=== PATIENT | male | born 1975 | race Caucasian/White ===

== ENCOUNTER 2021-05-05 12:43 | Emergency (ER) | payer BC, SELFPAY ==
[2021-05-05 14:19] VITALS: BP 147/105; PULSE 71; RESP 18; TEMP 36.8; O2SAT 98; BMI 28.1
--- NOTE | 2021-05-05 16:11 | XRR_ITS ---
PROCEDURE INFORMATION: Exam: XR Chest Exam date and time: 05/05/2021 4:11 PM Age: 45 years old Clinical indication: Cough and dyspnea; Additional info: Dyspnea/cough TECHNIQUE: Imaging protocol: XR of the chest. Views: 1 view. COMPARISON: No relevant prior studies available. FINDINGS: Lungs: Unremarkable. No consolidation. Pleural spaces: Unremarkable. No pleural effusion. No pneumothorax. Heart/Mediastinum: Unremarkable. No cardiomegaly. Bones/joints: Unremarkable. XR/XR chest 1V portable [id number] IMPRESSION: No acute findings.
--- NOTE | 2021-05-05 16:12 | ECG_ITS ---
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 Measurements Intervals [place] Rate: 61 P: 67 TN: 151 QRS: -6 QRSD: 88 T: 31 QT: 375 QTc: 379 Interpretive Statements SINUS RHYTHM No previous ECG available for comparison Electronically Signed On 05-05-2021 22:10:03 CDT by Yonas Marcus M.D. [id number]
--- NOTE | 2021-05-05 16:14 | ED_ITS ---
HPI - General Adult General: Chief complaint: General Medical Stated complaint: Nausea, vomiting, passing out Time Seen by Provider: 05/05/21 15:28 History of Present Illness: HPI narrative: 45-year-old male presents emergency room complaining of a syncopal episode yesterday while at [employer]. He had been standing up and sitting down several times got lightheaded and dizzy after he had sat down and nearly passed out. He was assisted by others nearby states he never fully lost consciousness. Is not had any problems since and spent over 24 hours since that episode he just generally feels draggy and feels unwell has not had any fever sweats chills did not have any vomiting or diarrhea but is happened it was very nauseous. Onset (ago): day(s) Severity: mild Relieving factors: none Exacerbating factors: none Associated symptoms: Reports diaphoresis, malaise and nausea; Deny chest pain, confusion, cough, decreased appetite, dyspnea, fevers/chills, headache(s), rash, palpitations, seizures, short of breath, syncope, vomiting or weakness Treatments prior to arrival: none Review of Systems Const: Reports: malaise and diaphoresis ENMT: Denies: throat pain, ear or mastoid pain, nasal discharge or nasal congestion Card: Denies: chest pain, palpitations or syncope Resp: Denies: dyspnea GI: Reports: nausea; Denies: vomiting : Denies: flank pain, dysuria, urinary frequency or urinary urgency Skin/Breast: Denies: rash Neuro: Denies: headache(s) or confusion Physical Exam Const: COMMON NORMALS: no acute distress GENERAL APPEARANCE: cooperative and comfortable ORIENTATION/CONSCIOUSNESS: Yes awake, Yes oriented to person, Yes oriented to place and Yes oriented to time HENMT: COMMON NORMALS: normocephalic, atraumatic and hearing grossly normal bilaterally HEAD & SCALP: normocephalic and atraumatic Neck/C-Spine: COMMON NORMALS: no JVD Resp: COMMON NORMALS: normal respiratory effort, No retractions, No use of accessory muscles and clear to auscultation bilaterally AUSCULTATION: clear to auscultation bilaterally Cardio: COMMON NORMALS: no JVD, regular rate, regular rhythm and No murmurs present (Cardio) RATE: regular rate RHYTHM: regular rhythm GI: COMMON NORMALS: Soft to palpation and No hepatosplenomegaly present AUSCULTATION: Yes normoactive bowel sounds PALPATION: Yes Soft to palpation, No Tenderness to palpation present (GI), No Guarding due to palpation present (GI) and Yes No hepatosplenomegaly present Extremity: COMMON NORMALS: normal to inspection, capillary refill normal, no clubbing, cyanosis or edema, no calf tenderness and no pedal edema Neuro: SENSORIUM/ORIENTATION: Yes oriented to person, Yes oriented to place and Yes oriented to time Skin: COMMON NORMALS: no rashes or lesions noted GENERAL SKIN EXAM: no rashes or lesions noted Course Vital Signs: Vital signs: Vital Signs Temperature 98.3 F 05/05/21 14:19 Pulse Rate 78 05/05/21 18:25 Respiratory Rate 24 H 05/05/21 18:25 Blood Pressure 134/89 05/05/21 18:25 Pulse Oximetry 98 05/05/21 18:25 MDM - General Adult MDM Narrative: Medical decision making narrative: Labs EKG and imaging reviewed as on the chart. Nothing acute on EKGs patient is feeling fine at this time. Discussed abnormal I would probably get him set up for an outpatient stress test. He is visiting relatives in town and lives quite some distance away instead he plans to be going home with the next day or 2 encouraged him to follow-up with his primary care doctor to discuss whether or not he should have cardiac evaluation done I would recommend at very least that he pursue getting a graded exercise test if he has any recurrent recurrence or worsening of symptoms he is return to the nearest emergency room. Lab Data: Labs: Lab Results 05/05/21 05/05/21 05/05/21 16:15 16:15 16:15 WBC 8.7 10^3/uL 10^3/ uL (4.0-10.0) RBC 5.19 10^6/uL 10^6 /uL (4.1-5.3) Hgb 15.7 g/dL g/dL (11.7-16.6) Hct 46.9 % % (42.0-52.0) MCV 90.4 fl fl (80-94) MCH 30.3 pg pg (28.0-34.0) MCHC 33.5 g/dL g/dL (30.0-36.0) RDW 12.0 % L % (12.1-15.1) Plt Count 251 10^3/cmm 10^3 /cmm (130-400) MPV 9.5 fL fL (7.4-10.4) Neut % (Auto) 64.2 % % Lymph % (Auto) 25.0 % % [place] % (Auto) 8.7 % % Eos % (Auto) 1.0 % % Baso % (Auto) 0.8 % % Neut # (Auto) 5.58 10^3/uL 10^3 /uL (1.8-7.7) Lymph # (Auto) 2.2 10^3/uL 10^3/ uL (0.8-4.8) [place] # (Auto) 0.8 10^3/uL 10^3/ uL (0.2-0.9) Eos # (Auto) 0.1 10^3/uL 10^3/ uL (0.0-0.8) Baso # (Auto) 0.1 10^3/uL 10^3/ uL (0.0-0.1) Nucleated RBC % (a uto) 0 % % Nucleated RBCs # 0.0 /100WBC /100W BC Sodium 136 mmol/L mmol/L (136-145) Potassium 4.0 mmol/L mmol/L (3.5-5.1) Chloride 98 mmol/L mmol/L (98-107) Carbon Dioxide 29 mmol/L mmol/L (22-29) Anion Gap 13.0 (5-19) BUN 8 mg/dL mg/dL (6-20) Creatinine 0.7 mg/dL mg/dL (0.7-1.2) GFR Calculation 122.5 mL/min mL/m in (90-130) Glucose 88 mg/dL mg/dL (65-115) Calculated Osmolal ity 280 mOsm/kg L mOs m/kg (285-295) Calcium 9.0 mg/dL mg/dL (8.5-10.5) Total Bilirubin 0.7 mg/dL mg/dL (0.15-1.2) AST 18 U/L U/L (0-40) ALT 24 U/L U/L (0-41) Alkaline Phosphata se 73 IU/L IU/L (40-130) Troponin T Baselin e 6 ng/L ng/L (0-15) Total Protein 7.8 g/dL g/dL (6.6-8.7) Albumin 4.0 g/dL g/dL (3.5-5.2) Globulin 3.8 g/dL g/dL (1.3-4.6) Lipase 21 U/L U/L (13-60) Urine Color Urine Appearance Urine pH Ur Specific Gravit y Urine Protein Urine Glucose (UA) Urine Ketones Urine Blood Urine Nitrate Urine Bilirubin Urine Urobilinogen Ur Leukocyte Shima ase 05/05/21 16:40 WBC RBC Hgb Hct MCV MCH MCHC RDW Plt Count MPV Neut % (Auto) Lymph % (Auto) [place] % (Auto) Eos % (Auto) Baso % (Auto) Neut # (Auto) Lymph # (Auto) [place] # (Auto) Eos # (Auto) Baso # (Auto) Nucleated RBC % (a uto) Nucleated RBCs # Sodium Potassium Chloride Carbon Dioxide Anion Gap BUN Creatinine GFR Calculation Glucose Calculated Osmolal ity Calcium Total Bilirubin AST ALT Alkaline Phosphata se Troponin T Baselin e Total Protein Albumin Globulin Lipase Urine Color Yellow (Yellow) Urine Appearance Clear (CLEAR) Urine pH 5 (5-7) Ur Specific Gravit y 1.005 (1.005-1.030) Urine Protein Neg (Negative) Urine Glucose (UA) Norm (Normal) Urine Ketones Negative (Negative) Urine Blood Neg (Negative) Urine Nitrate Negative (Negative) Urine Bilirubin Neg (Negative) Urine Urobilinogen Norm mg/dL mg/dL (Negative) Ur Leukocyte Shima ase Negative (Negative) Discharge Plan Discharge Patient Disposition: Home Clinical Impression: Syncope Condition: Stable Discharge Orders: Discharge ED (Routine); Ordered 05/05/21 Ordered By: Donaldo Carlisle Patient Instructions: Opioid Safety Coding Level of Care Code 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
[2021-05-05 16:24] LABS: Basophils # 0.1 10^3/uL (0.0-0.1); Basophils % 0.8 %; Eosinophils # 0.1 10^3/uL (0.0-0.8); Hematocrit 46.9 % (42.0-52.0); Hemoglobin 15.7 g/dL (11.7-16.6); Lymphocytes # 2.2 10^3/uL (0.8-4.8); Mean Corpuscular HGB Conc 33.5 g/dL (30.0-36.0); Mean Corpuscular Hemoglobin 30.3 pg (28.0-34.0); Mean Corpuscular Volume 90.4 fl (80-94); Mean Platelet Volume 9.5 fL (7.4-10.4); Monocytes # 0.8 10^3/uL (0.2-0.9); Monocytes % 8.7 %; Neutrophils # 5.58 10^3/uL (1.8-7.7); Neutrophils % 64.2 %; Nucleated Red Blood Cells % 0 %; Platelet Count 251 10^3/cmm (130-400); Red Blood Count 5.19 10^6/uL (4.1-5.3); White Blood Count 8.7 10^3/uL (4.0-10.0)
[2021-05-05] MEDS: ondansetron 2 mg/ML SDV 2 mL 4 MG IVP (16:46)
[2021-05-05] MEDS: sodium chloride 0.9% 1,000 ML 999 ML IV (16:46)
[2021-05-05 16:51] LABS: Alanine Aminotransferase 24 U/L (0-41); Alkaline Phosphatase 73 IU/L (40-130); Aspartate Amino Transferase 18 U/L (0-40); Blood Urea Nitrogen 8 mg/dL (6-20); Carbon Dioxide 29 mmol/L (22-29); Chloride 98 mmol/L (98-107); Globulin 3.8 g/dL (1.3-4.6); Glomerular Filtration Rate 122.5 mL/min (90-130); Glucose 88 mg/dL (65-115); Lipase 21 U/L (13-60); Osmolality Calculated 280 mOsm/kg (285-295); Sodium 136 mmol/L (136-145); Total Bilirubin 0.7 mg/dL (0.15-1.2); Total Protein 7.8 g/dL (6.6-8.7)
[2021-05-05 16:52] LABS: Troponin(5th) Baseline 6 ng/L (0-15)
[2021-05-05 16:59] LABS: Add Urine Microscopic? NO; Charge for UA Resulting for Rev
[2021-05-05 17:01] LABS: Blood Urine Neg (Negative); Glucose Urine UA Norm (Normal); Ketones Urine Negative (Negative); Nitrate Urine Negative (Negative); Protein Urine Neg (Negative); Specific Gravity, Urine 1.005 (1.005-1.030); Urine Appearance Clear (CLEAR); Urine Color Yellow (Yellow); pH Urine 5 (5-7)
[2021-05-05 17:02] VITALS: BP 131/94; PULSE 61; RESP 18; O2SAT 97
[2021-05-05 17:02] LABS: Bilirubin Urine Neg (Negative); Leukocyte Esterase Urine Negative (Negative); Urobilinogen Urine Norm (Negative)
[2021-05-05 18:02] VITALS: BP 134/89; PULSE 78; RESP 24; O2SAT 98
--- NOTE | 2021-05-05 18:12 | ECG_ITS ---
[facility] Test Date: 2021-05-05 Pat Name: Savage Cordon Department: Room: Gender: Male [employer] Worker: : 1975 Requested By: Donaldo Miguel Order Number: [id number] Lena MD: Yonas Marcus M.D. Measurements Intervals [place] Rate: 58 P: 59 DE: 152 QRS: -16 QRSD: 93 T: 12 QT: 401 QTc: 397 Interpretive Statements SINUS BRADYCARDIA Compared to ECG 05/05/2021 16:37:59 Sinus rhythm no longer present Electronically Signed On 05-05-2021 22:20:50 CDT by Yonas Marcus M.D. [id number]
[2021-05-05 18:25] VITALS: BP 134/89; PULSE 78; RESP 24; O2SAT 98
== END 2021-05-05 18:37 | disposition home or self-care (01) ==
PROVIDERS: Emergency Provider Family Medicine
DX: R55 Syncope and collapse (principal)
CPT/HCPCS: 71045; 80053; 81003; 83690; 84484; 85025; 93005; 96361; 96374; 99284; J2405; J7030